=== PATIENT | female | born 1990 | race Caucasian/White ===

== ENCOUNTER 2018-10-29 10:57 | Emergency (ER) | payer OTHER ==
[2018-10-29 11:59] VITALS: TEMP 97.7; BMI 28.3
--- NOTE | 2018-10-29 13:34 | PDOC ---
History of Present Illness - General Chief Complaint: Chest Pain Stated Complaint: CHEST PAIN Time Seen by Provider: 10/29/18 12:49 History Source: Patient Exam Limitations: No Limitations - History of Present Illness Initial Comments: 10/29/18 13:23 8YOF who is 36 wks who p/w intermittent sharp chest pain q20 minutes with radiation to RUE, accompanied by SOB, headache, and BLE swelling and discomfort without one side worse than the other, since for about the past 2 days. She returned back from a trip to [place] yesterday, which was an [address], but she made a point to get out of the car frequently to stretch. She denies f/c/n/v/d/c, abdominal pain, new back pain, palpitations, personal or family h/o blood clots or heart disease/heart attack, or additional DVT/PE risk factors. Past History - Past Medical History Allergies/Adverse Reactions: Allergies Allergy/AdvReac Type Severity Reaction Status Date / Time Penicillins Allergy Unknown "dizziness" Verified 10/29/18 17:02 Home Medications: Ambulatory Orders Pnv No.95/Ferrous Fum/Folic AC [ Vitamin Tablet] 1 each PO DAILY Cephalexin Monohydrate [Keflex -] 500 mg PO BID #14 capsule 10/29/18 Asthma: No Cancer: No Cardiac Disorders: No Diabetes: No HTN: No Seizures: No Thyroid Disease: No - Suicide/Smoking/Psychosocial Hx Smoking History: Never smoked Have you smoked in the past 12 months: No Information on smoking cessation initiated: No Hx Alcohol Use: No Drug/Substance Use Hx: No Substance Use Type: None Hx Substance Use Treatment: No Review of Systems - Review of Systems Able to Perform ROS?: Yes Comments:: 10/29/18 13:39 GEN: no fever, chills, malaise, generalized weakness, or weight change HEENT: no ear pain, sore throat, vision change, or eye pain CV: chest pain, edema, no palpitations, lightheadedness, no syncope RESP: SOB, ALVAREZ, no cough, no wheezing GI: no abdominal pain, nausea, vomiting, diarrhea, constipation, or white/black/ bloody stool : no dysuria, hematuria, incontinence, retention, bleeding, or discharge MSK: no neck/back pain, muscle weakness/pain, or joint swelling/pain NEURO: headache, no seizure, vertigo, numbness, tingling, or focal weakness PSYCH: no substance use, no behavior change SKIN: no jaundice, no rash ROS otherwise negative except as noted in HPI *Physical Exam - Vital Signs Last Vital Signs Temp Pulse Resp BP Pulse Ox 97.7 F 106 H 22 H 121/85 100 10/29/18 11:53 10/29/18 15:48 10/29/18 15:48 10/29/18 15:48 10/29/18 15:48 - Physical Exam Comments: 10/29/18 13:46 GENERAL: nontoxic and well-appearing, A/Ox4, no distress, answers questions appropriately HEENT: PERRLA, EOMI, moist mucous membranes NECK/BACK: no midline ttp, no spinal stepoff or deformity, no hematoma, full ROM , neck supple CARDIOVASCULAR: regular rate/rhythm, normal S1S2, no MGR, strong peripheral pulses, capillary refill <2 seconds, extremities wwp, BLE 2+ pitting edema LUNGS/RESPIRATORY: no respiratory distress, CTAB GI/ABDOMEN: symmetric zcid-co-dtoy, normoactive BS, soft, no ttp, no midline pulsatile masses : no CVA tenderness EXTREMITIES: no muscle atrophy, no acute deformity, no calf pain, +BLE swelling which are equal bilaterally, no palpable cord SKIN: warm and dry, no pallor, no jaundice, no rash, no bruising, no skin breakdown, no cuts, no lesions NEUROLOGICAL: GCS 15, CN II-XII grossly intact, 5/5 strength proximally and distally, no facial droop Heart Score/ECG Review #1 10/29/18 13:47 NSR, rate 92, normal axis and intervals, nonspecific ST-T abnormality ED Treatment Course - LABORATORY CBC & Chemistry Diagram: 10/29/18 14:00 10/29/18 14:00 - ADDITIONAL ORDERS Additional order review: 10/29/18 14:04 Urine Culture - Final Urine - Urine Clean Catch Contaminated: Please Repeat 10/29/18 14:00 RBC 3.90 MCV 85.3 MCHC 32.9 RDW 15.3 MPV 8.8 Neutrophils % 73.2 Lymphocytes % 17.5 Monocytes % 7.4 Eosinophils % 1.5 Basophils % 0.4 - RADIOLOGY Radiology Studies Ordered: Category Date Time Status DUPLEX VASCUL US-2LEGS [US] Stat Ultrasound 10/29/18 13:37 Completed - Medications Given in the ED: ED Medications Discontinued Medications Generic Name Dose Route Start Last Admin Trade Name Yulisa PRN Reason Stop Dose Admin Cephalexin HCl 500 mg 10/29/18 15:38 10/29/18 15:43 Keflex - PO 10/29/18 15:39 500 mg ONCE ONE Administration Medical Decision Making - Medical Decision Making 28YOF who is 36 wks p/w chest pain. Initial Vital Signs Temp Pulse Resp BP Pulse Ox 97.7 F 94 H 18 120/73 96 10/29/18 11:53 10/29/18 11:53 10/29/18 11:53 10/29/18 11:53 10/29/18 11:53 Exam: As noted in Physical Exam section. DDX IBNLT: concern is for PE. Also could be any of the following: musculoskeletal pain, pericarditis, ACS (matti -associated SCAD), gastritis, PUD, pancreatitis, cholecystitis, choledocholithiasis, cholangitis, colitis, UTI/pyelonephritis, PNA/bronchitis, pleurisy, pleuritis, less likely aortic dissection, AAA, PTX, bowel perforation, MVP, panic/anxiety, etc. W/U ordered: Labs as noted below, EKG, BLE duplex TX ordered: None at this time. EKG: Reviewed; results as noted in ECG Review section. Duplex BLE: No e/o DVT Laboratory Tests 10/29/18 10/29/18 10/29/18 14:00 14:00 14:00 WBC 11.8 H RBC 3.90 Hgb 10.9 Hct 33.2 MCV 85.3 MCH 28.1 MCHC 32.9 RDW 15.3 Plt Count 247 MPV 8.8 Absolute Neuts (auto) 8.7 H Neutrophils % 73.2 Lymphocytes % 17.5 Monocytes % 7.4 Eosinophils % 1.5 Basophils % 0.4 Nucleated RBC % 0 PT with INR 11.70 INR 0.99 PTT (Actin FS) 30.4 Sodium 139 Potassium 3.9 Chloride 110 H Carbon Dioxide 23 Anion Gap 7 L BUN 4.2 L Creatinine 0.5 L Est GFR (CKD-EPI)AfAm 154.81 Est GFR (CKD-EPI)NonAf 133.57 Random Glucose 78 Calcium 8.7 Total Bilirubin 0.2 AST 8 L ALT 13 Alkaline Phosphatase 124 H Creatine Kinase 35 Troponin I < 0.02 Total Protein 6.0 L Albumin 2.6 L Urine Color Urine Appearance Urine pH Ur Specific [place] Urine Protein Urine Glucose (UA) Urine Ketones Urine Blood Urine Nitrite Urine Bilirubin Urine Urobilinogen Ur Leukocyte Esterase Urine WBC (Auto) Urine RBC (Auto) Urine Casts (Auto) U Pathogenic Cast Auto U Epithel Cells (Auto) Urine Crystals (Auto) Urine Bacteria (Auto) Urine Yeast (Auto) 10/29/18 14:04 WBC RBC Hgb Hct MCV MCH MCHC RDW Plt Count MPV Absolute Neuts (auto) Neutrophils % Lymphocytes % Monocytes % Eosinophils % Basophils % Nucleated RBC % PT with INR INR PTT (Actin FS) Sodium Potassium Chloride Carbon Dioxide Anion Gap BUN Creatinine Est GFR (CKD-EPI)AfAm Est GFR (CKD-EPI)NonAf Random Glucose Calcium Total Bilirubin AST ALT Alkaline Phosphatase Creatine Kinase Troponin I Total Protein Albumin Urine Color Yellow Urine Appearance Turbid Urine pH 6.5 Ur Specific [place] 1.022 Urine Protein Negative Urine Glucose (UA) Negative Urine Ketones Negative Urine Blood Negative Urine Nitrite Negative Urine Bilirubin Negative Urine Urobilinogen 1.0 Ur Leukocyte Esterase 2+ H Urine WBC (Auto) 56 Urine RBC (Auto) 2 Urine Casts (Auto) 35 U Pathogenic Cast Auto None seen U Epithel Cells (Auto) 26.8 Urine Crystals (Auto) Ca oxalates Urine Bacteria (Auto) 2688.2 Urine Yeast (Auto) None seen Patient has UTI and is treated; first dose Keflex given here and remaining course sent to pharmacy. Reassessment: patient states slight improvement but still having some right shoulder pain. Seen walking around department not SOB and asking for discharge home. Dr. Sheppard and I have multiple conversations with her recommending chest CTA. She is understandably very concerned about radiation and contrast to the baby. We do explain to her the risks of pulmonary embolism and that this is one of our main concerns. We do make it clear that our medical recommendation is to have the chest CTA. She wishes to sign out AMA. The patient has full decision making capacity and after thorough discussion of risks including , she signs out AMA. Paperwork is given with specific return precautions and request that she return if she changes her mind. She is instructed to go back up to L&D for monitoring before going home. L&D is called and expecting her. *DC/Admit/Observation/Transfer Diagnosis at time of Disposition: SOB (shortness of breath) UTI (urinary tract infection) Qualifiers: Urinary tract infection type: acute cystitis Hematuria presence: without hematuria Qualified Code(s): N30.00 - Acute cystitis without hematuria Chest pain Qualifiers: Chest pain type: unspecified Qualified Code(s): R07.9 - Chest pain, unspecified - Discharge Dispostion Disposition: AGAINST MEDICAL ADVICE Condition at time of disposition: Stable Decision to Admit order: No - Prescriptions Prescriptions: Cephalexin Monohydrate [Keflex -] 500 mg PO BID #14 capsule - Referrals Referrals: Nina Mccormick CNM [Primary Care Provider] - - Patient Instructions Printed Discharge Instructions: DI for Urinary Tract Infection (UTI), DI for Chest Pain Additional Instructions: You were seen in the ER for chest pain. We did lab work on your blood and urine , an electrocardiogram, and a leg ultrasound to look for blood clots. We found a bladder infection, but otherwise did not find any concerning abnormalities. We recommended that you get a chest CT to make sure there is no blood clot in your lungs, but we understand that you decided you did not want this and preferred to go home against medical advice out of concern for the radiation exposure to the baby. Take over the counter pain medications for your pain, as instructed on the medication label. Please follow up with your regular doctors this afternoon or tomorrow. Call their clinic as soon as possible, tell them you were seen in the ER for chest pain and concerns for pulmonary embolism, and tell them you need an appointment LOC. If you have any new or worsening symptoms, especially worsening chest pain, jaw pain, shoulder/arm pain, shortness of breath, sweats, nausea, loss of consciousness, palpitations, or other symptoms, please come back to the ER at any time (24 hours a day). If you are having severe or life threatening symptoms, or symptoms that make it unsafe to drive or have someone drive you, please call 911. Please come back to the emergency room if you change your mind about having the CT scan to check for blood clots in your lungs. If there is a blood clot, this can be a very serious issue with high probability for . - Post Discharge Activity
[2018-10-29 14:20] LABS: BASO % 0.4 % (0-2.0); EOS % 1.5 % (0-4.5); HEMATOCRIT 33.2 % (32.4-45.2); HEMOGLOBIN 10.9 GM/dL (10.7-15.3); LYMPH % 17.5 % (8-40); MCH 28.1 pg (25.7-33.7); MCHC 32.9 g/dl (32.0-36.0); MEAN CELL VOLUME 85.3 fl (80-96); MEAN PLT VOLUME 8.8 fl (7.5-11.1); MONO % 7.4 % (3.8-10.2); NEUT % 73.2 % (42.8-82.8); PLATELET COUNT 247 K/MM3 (134-434); RDW 15.3 % (11.6-15.6); WHITE BLOOD COUNT 11.8 K/mm3 (4.0-10.0)
[2018-10-29 14:36] LABS: EPI CELLS 26.8 /HPF (0-5/HPF); HYALINE CASTS 35 /lpf (0-8); PH,URINE 6.5 (5.0-8.0); URINE APPEARANCE TURBID; URINE BACTERIA 2688.2 /hpf (NEGATIVE); URINE BILIRUBIN NEGATIVE (NEGATIVE); URINE COLOR YELLOW; URINE GLUCOSE (UA) NEGATIVE (NEGATIVE); URINE KETONE NEGATIVE (NEGATIVE); URINE LEUK ESTERASE 2+ (NEGATIVE); URINE NITRITE NEGATIVE (NEGATIVE); URINE PROTEIN NEGATIVE (NEGATIVE); URINE RBC 2 /hpf (0-4); URINE WBC 56 /hpf (0-5)
[2018-10-29 14:37] LABS: INR 0.99 (0.83-1.09); PROTHROMBIN TIME (PATIENT) 11.7 SEC (9.7-13.0)
[2018-10-29 14:40] LABS: ACTIVATED PTT 30.4 SECONDS (25.2-36.5)
[2018-10-29 14:50] LABS: ALBUMIN 2.6 g/dl (3.4-5.0); ALK PHOS 124 U/L (45-117); ANION GAP 7 MMOL/L (8-16); BILIRUBIN,TOTAL 0.2 mg/dL (0.2-1); BLOOD UREA NITROGEN 4.2 mg/dL (7-18); CALCIUM 8.7 mg/dL (8.5-10.1); CHLORIDE 110 mmol/L (98-107); CO2 23 mmol/L (21-32); CREATININE 0.5 mg/dL (0.55-1.3); GLUCOSE,RANDOM 78 mg/dL (74-106); POTASSIUM 3.9 mmol/L (3.5-5.1); SGOT/AST 8 U/L (15-37); SGPT/ALT 13 U/L (13-61); SODIUM 139 mmol/L (136-145)
[2018-10-29 14:51] LABS: URINE CRYSTALS CA OXALATES /hpf; YEAST NONE SEEN (NEGATIVE)
[2018-10-29] MEDS ORDERED: CEPHALEXIN MONOHYDRATE 500 MG CAPSULE (UD) PO ONE (15:38)
[2018-10-29] MEDS ORDERED: CEPHALEXIN MONOHYDRATE 500 MG CAPSULE (UD) ONE (15:42)
[2018-10-29 15:49] VITALS: BP 121/85; PULSE 106
--- NOTE | 2018-10-29 16:29 | PDOC ---
Documentation entered by Judy Pitts SCRIBE, acting as scribe for Nohelia Sheppard MD. Nohelia Sheppard MD: This documentation has been prepared by the zenobiaeHong Aiswarya, SCRIBE, under my direction and personally reviewed by me in its entirety. I confirm that the documentation accurately reflects all work, treatment, procedures, and medical decision making performed by me. Attending Attestation - Resident Resident Name: Traci Sheehan - ED Attending Attestation I have performed the following: I have examined & evaluated the patient, The case was reviewed & discussed with the resident, I agree w/resident's findings & plan, Exceptions are as noted - HPI HPI: 10/29/18 15:32 Ms Hickman is a 28 yo F who is approximately 36 wks who p/w intermittent sharp chest pain q20 minutes with radiation to RUE, accompanied by SOB, headache, and BLE swelling and discomfort without one side worse than the other, since for about the past 2 days. She returned back from a trip to [place] yesterday, which was an [address], but she made a point to get out of the car frequently to stretch. - Physicial Exam PE: 10/29/18 15:33 GENERAL: The patient is in no acute distress. ENT: Ears normal, nares patent, oropharynx clear without exudates. Moist mucous membranes. NECK: Normal range of motion, supple LUNGS: Breath sounds equal, clear to auscultation bilaterally. No wheezes, and no crackles. HEART:Regular rate and rhythm, normal S1 and S2 without murmur, rub or gallop. ABDOMEN: Gravid abdomen, Soft, nontender EXTREMITIES: Normal range of motion, no edema. NEUROLOGICAL: Cranial nerves II through XII grossly intact. Normal speech. No focal neurological deficits. SKIN: Warm, Dry, normal turgor, no rashes or lesions noted. - Medical Decision Making 10/29/18 16:20 Ms Hickman presents to the ER with a complaint of chest pain Located on the right side of the chest and radiating to the right shoulder Pt has associated shortness of breath Pt pain began suddenly yesterday Pt drove back from [place] yesterday and today Lower extremity edema is new NO PLEURISY no pain on palpation Pt pain is intermittent No cough No fever Labs 10/29/18 16:24 Laboratory Tests 10/29/18 10/29/18 10/29/18 14:00 14:00 14:00 WBC 11.8 H Hgb 10.9 Hct 33.2 Plt Count 247 INR 0.99 BUN 4.2 L Creatinine 0.5 L Creatine Kinase 35 Troponin I < 0.02 Urine Ketones Urine Blood Urine Nitrite Ur Leukocyte Esterase Urine WBC (Auto) Urine RBC (Auto) U Pathogenic Cast Auto Urine Crystals (Auto) Urine Bacteria (Auto) 10/29/18 14:04 WBC Hgb Hct Plt Count INR BUN Creatinine Creatine Kinase Troponin I Urine Ketones Negative Urine Blood Negative Urine Nitrite Negative Ur Leukocyte Esterase 2+ H Urine WBC (Auto) 56 Urine RBC (Auto) 2 U Pathogenic Cast Auto None seen Urine Crystals (Auto) Ca oxalates Urine Bacteria (Auto) 2688.2 Pt duplex negative for DVT We have had a long conversation re: our thought to do a CTA to r/o PE given pt in 3rd trimester, Just drove back from [place], is tachycardiac Pt is unwilling to consent to this test Pt is aware of our concern about a life threatening clot in her lung which could cause her Pt understands these risks I have explained that although the CT does involve radiation, the baby will be shielded by a lead apron AND pt has largely completed forming its organs and therefore if there is a little radiation, it should be deter her from being assessed Pt insists on going home I have asked this patient to return IMMEDIATELY to the ER for increased chest pain, shortness of breath, palpitations, weakness, any other concerns or complaints Pt told that she can return to the ER at any time and should come via ambulance Pt told to review all discharge instructions with and have him monitor her as well Pt sent to L&D for monitoring Note: The patient insists on leaving the emergency dept and is signing out against medical advice. The patient understands the risks and complications that may result from the refusal of medical care and admission which includes and permanent disability. The patient has the mental capacity of understanding the risks of refusing care and is capable of making an informed decision. The patient was instructed to return to the emergency department should she change her mind regarding medical care or should her condition worsen. The patient signed the Against Medical Advice form.
--- NOTE | 2018-10-29 16:30 | EKG ---
Test Reason : Blood Pressure : / mmHG Vent. Rate : 092 BPM Atrial Rate : 092 BPM P-R Int : 124 ms QRS Dur : 096 ms QT Int : 356 ms P-R-T Axes : 037 031 045 degrees QTc Int : 440 ms NORMAL SINUS RHYTHM NONSPECIFIC ST ABNORMALITY ABNORMAL ECG NO PREVIOUS ECGS AVAILABLE Confirmed by DEDE STATON MD ([id number]) on 10/29/2018 4:30:23 PM Referred By: Confirmed By:DEDE STATON MD
== END 2018-10-29 17:00 | disposition left against medical advice (07) ==
LOC: JERFT 10:57 → JER 10:57
DX: O26.893 Other specified pregnancy related conditions, third trimester (principal); O23.13 Infections of bladder in pregnancy, third trimester; N30.00 Acute cystitis without hematuria; Z3A.36 36 weeks gestation of pregnancy; R07.9 Chest pain, unspecified; R06.02 Shortness of breath
CPT/HCPCS: 36415; 80053; 81003; 82550; 84484; 85025; 85610; 85730; 87086; 93005; 93010; 93970-TC; 99283-25

== ENCOUNTER 2018-12-04 13:15 | Inpatient (IN) | payer OTHER ==
[2018-12-04 14:13] LABS: BASO % 0.3 % (0-2.0); HEMOGLOBIN 10.9 GM/dL (10.7-15.3); LYMPH % 18.6 % (8-40); MCH 27.5 pg (25.7-33.7); MEAN PLT VOLUME 8.8 fl (7.5-11.1); MONO % 7.2 % (3.8-10.2); NEUT % 72.9 % (42.8-82.8); PLATELET COUNT 235 K/MM3 (134-434); RBC 3.95 M/mm3 (3.60-5.2); RDW 15.8 % (11.6-15.6)
[2018-12-04 14:20] VITALS: BMI 40.4
[2018-12-04 14:22] LABS: INR 1.04 (0.83-1.09); PROTHROMBIN TIME (PATIENT) 12.3 SEC (9.7-13.0)
[2018-12-04 14:25] LABS: ACTIVATED PTT 27.5 SECONDS (25.2-36.5)
[2018-12-04 14:32] LABS: BLOOD UREA NITROGEN 6.7 mg/dL (7-18); CALCIUM 9.3 mg/dL (8.5-10.1); CREATININE 0.6 mg/dL (0.55-1.3); POTASSIUM 3.5 mmol/L (3.5-5.1)
--- NOTE | 2018-12-04 15:06 | PN ---
Progress Note (short form) - Note Progress Note: cx clp, vx -4 mi, fhr cat 1, no contraction, risks associated with cervidil discussed , failure of induction discussed , and maternal complication discussed , requesting induction, cervidil inserted
--- NOTE | 2018-12-04 15:12 | HP ---
Past Medical History - Primary Care Physician PCP:: Gene De Jesus - Admission Chief Complaint: 40.4 weeks, post date , for cervidil induction History of Present Illness: 28 yo f g 4 p2012 edc by sono 12/01/18 , 40.3 weeks, hx of previous LGA , requesting induction, cx clp, vx -4 , fhr cat 1, , no contraction History Source: Patient Limitations to Obtaining History: No Limitations - Past Medical History ...: 4 ...Para: 2 ...Term: 2 ...: 0 ...Spon : 1 ...Induced : 0 ...Multiple Gestation: 0 ...EDC by Sono: 12/01/18 Heme/Onc: Yes: Anemia - Past Surgical History Past Surgical History: Yes: None Hx Myomectomy: No Hx Transabdominal Cerclage: No - Smoking History Smoking history: Never smoked Have you smoked in the past 12 months: No - Alcohol/Substance Use Hx Alcohol Use: No - Social History Usual Living Arrangement: Yes: With Spouse Home Medications - Allergies Allergies/Adverse Reactions: Allergies Allergy/AdvReac Type Severity Reaction Status Date / Time Penicillins Allergy Unknown "dizziness" Verified 12/04/18 14:21 - Home Medications Home Medications: Ambulatory Orders Vit No.130/Iron/Folic [ Tablet] 1 tab PO DAILY 12/01/18 Ferrous Sulfate [Feosol] 325 mg PO DAILY 12/04/18 Review of Systems - Review of Systems Constitutional: reports: No Symptoms Eyes: reports: No Symptoms HENT: reports: No Symptoms Neck: reports: No Symptoms Cardiovascular: reports: No Symptoms Respiratory: reports: No Symptoms Gastrointestinal: reports: No Symptoms Genitourinary: reports: No Symptoms Breasts: reports: No Symptoms Reported Musculoskeletal: reports: No Symptoms Integumentary: reports: No Symptoms Neurological: reports: No Symptoms Endocrine: reports: No Symptoms Hematology/Lymphatic: reports: No Symptoms Psychiatric: reports: No Symptoms Physical Exam - Maternity Vital Signs: Vital Signs Temperature 98.1 F 12/04/18 14:00 Pulse Rate 97 H 12/04/18 15:00 Respiratory Rate 18 12/04/18 15:00 Blood Pressure 124/72 12/04/18 15:00 O2 Sat by Pulse Oximetry (%) Constitutional: Yes: Well Nourished, No Distress, Calm Eyes: Yes: WNL, Conjunctiva Clear, EOM Intact HENT: Yes: WNL, Atraumatic, Normocephalic Neck: Yes: WNL, Supple, Trachea Midline Cardiovascular: Yes: WNL, Regular Rate and Rhythm Breast(s): Yes: WNL - Abdominal Exam/OB Fundal Height: 40 Number of Fetuses: Single Presentation: Vertex Contractions: No Intensity: Unaware Monitor Mode: External Heart Rate Location: [facility] Category: I Accelerations: Uniform Decelerations: None - Vaginal Exam/OB Vaginal Bleediing: No Speculum Exam: No Dilatation (cm): closed Effacement (%): 0 Amniotic Membrane Status: Intact Presentation: Vertex/Position Station: -4 - Physical Exam Musculoskeletal: Yes: WNL Extremities: Yes: WNL Edema: Yes Edema: LLE: Trace, RLE: Trace Deep Tendon Reflex Grade: Normal +2 Psychiatric: Yes: WNL - Labs Lab Results: CBC, BMP 12/04/18 13:59 12/04/18 13:59 Hemorrhage Risk Assessment - Risk Factors Medium Risk Factors: Yes: None High Risk Factors: Yes: None Risk Score: 1 Risk Level: Medium Risk Problem List - Problems (1) Post-dates Code(s): O48.0 - POST-TERM Qualifiers: Post-term type: 40-42 weeks gestation Qualified Code(s): O48.0 - Post-term (2) Encounter for induction of labor Code(s): Z34.90 - ENCNTR FOR SUPRVSN OF NORMAL , UNSP, UNSP TRIMESTER Assessment/Plan admit, FHM GBS negative cervidil inductiob
[2018-12-04] MEDS ORDERED: ACETAMINOPHEN 325 MG TABLET (FP) ONE (15:15)
[2018-12-04] MEDS ORDERED: PROMETHAZINE HCL 25 MG/1 ML VIAL IVPUSH ONE (15:17)
[2018-12-04] MEDS ORDERED: BUTORPHANOL TARTRATE 1 MG/ML VIAL IVPUSH ONE (15:17)
[2018-12-04] MEDS ORDERED: ACETAMINOPHEN 325 MG TABLET (FP) PO ONE (16:00)
[2018-12-04] MEDS ORDERED: DINOPROSTONE 10 MG VAGINAL SUPPOSITORY VG ONE (16:00)
[2018-12-04] MEDS: OXYTOCIN 30 UNITS in 0.9% NS 30 UNIT/500 ML INFUS.BAG IVPB SCH (22:45)
[2018-12-05] MEDS ORDERED: OXYTOCIN 30 UNITS in 0.9% NS 30 UNIT/500 ML INFUS.BAG IVPB SCH (03:15)
[2018-12-05] MEDS ORDERED: OXYTOCIN 30 UNITS in 0.9% NS 30 UNIT/500 ML INFUS.BAG IVPB ONE ×2 (03:51→22:40)
[2018-12-05] MEDS: DEXTROSE 5%-LACTATED RINGERS 1,000 ML IV SCH ×2 (04:30→15:00)
[2018-12-05] MEDS ORDERED: DINOPROSTONE 10 MG VAGINAL SUPPOSITORY VG ONE (07:30)
--- NOTE | 2018-12-05 07:50 | PN ---
Progress Note (short form) - Note Progress Note: post date,for induction of labor cervidil was removed, started on pitocin, does not feel contraction , comfortable cx clp, -4 station , no changes of cervix, wants to cont, induction fhr CAT 1 advised stop pitocin , will insert second cervidil to make cx soft , before restarting pitocin Problem List - Problems (1) Post-dates Code(s): O48.0 - POST-TERM Qualifiers: Post-term type: 40-42 weeks gestation Qualified Code(s): O48.0 - Post-term (2) Encounter for induction of labor Code(s): Z34.90 - ENCNTR FOR SUPRVSN OF NORMAL , UNSP, UNSP TRIMESTER
[2018-12-06] MEDS: DEXTROSE 5%-LACTATED RINGERS 1,000 ML IV SCH (04:00)
[2018-12-06] MEDS ORDERED: ACETAMINOPHEN 325 MG TABLET (FP) ONE ×2 (12:26→18:06)
[2018-12-06] MEDS ORDERED: ACETAMINOPHEN 325 MG TABLET (FP) PO ONE ×2 (12:30→18:30)
[2018-12-06] MEDS ORDERED: OXYTOCIN 30 UNITS in 0.9% NS 30 UNIT/500 ML INFUS.BAG IVPB ONE (15:31)
[2018-12-06] MEDS ORDERED: ONDANSETRON 4 MG/2 ML VIAL IVPUSH PRN (21:19)
[2018-12-06] MEDS ORDERED: KETOROLAC TROMETHAMINE 30 MG/1 ML VIAL ONE (21:30)
[2018-12-06] MEDS: OXYTOCIN 30 UNITS in 0.9% NS 30 UNIT/500 ML INFUS.BAG IVPB SCH (21:45)
--- NOTE | 2018-12-06 21:59 | PN ---
Progress Note (short form) - Note Progress Note: cx closed, non effaced , presenting part not felt, bed side sono confirmed unstable lie , transverse lie , fhr cat 1, advised c/s , risks discussed Problem List - Problems (1) Post-dates Code(s): O48.0 - POST-TERM Qualifiers: Post-term type: 40-42 weeks gestation Qualified Code(s): O48.0 - Post-term (2) Encounter for induction of labor Code(s): Z34.90 - ENCNTR FOR SUPRVSN OF NORMAL , UNSP, UNSP TRIMESTER
[2018-12-06] MEDS ORDERED: OXYTOCIN 10 UNITS/ML VIAL ONE (22:11)
[2018-12-06] MEDS ORDERED: ePHEDrine SULFATE 50 MG/1 ML AMPULE ONE (22:13)
[2018-12-06] MEDS ORDERED: ceFAZolin SODIUM 1 GM VIAL ONE (22:15)
[2018-12-06] MEDS ORDERED: MIDAZOLAM HCL 2 MG/2 ML SINGLE DOSE VIAL ONE (22:21)
[2018-12-06] MEDS ORDERED: BENZOCAINE 28 GM HEMORRHOIDAL OINTMENT PR PRN (23:10)
[2018-12-06] MEDS ORDERED: WITCH HAZEL 50% (TUCKS) 40 PAD/JAR PAD TP PRN (23:10)
[2018-12-06] MEDS ORDERED: BENZOCAINE 20% 57 GM BOTTLE TP PRN (23:10)
[2018-12-06] MEDS ORDERED: METHYLERGONOVINE MALEATE 0.2 MG/1 ML AMP IM PRN (23:10)
[2018-12-06] MEDS ORDERED: OXYTOCIN 20 UNITS in 0.9% NS 20 UNIT/1,000 ML INFUS.BAG IV SCH (23:15)
[2018-12-06] MEDS ORDERED: DEXTROSE 5%-LACTATED RINGERS 1,000 ML IV SCH (23:15)
--- NOTE | 2018-12-06 23:16 | OP ---
Operative Note - Note: Operative Date: 12/06/18 Pre-Operative Diagnosis: ,post date , cervidil and pitocin induction, unstable lie , Operation: primary LST c/s Findings: live baby boy wt 813, 19 inches , transverse lie Anesthesia: Spinal Specimens Removed: placenta Estimated Blood Loss (mls): 500 Blood Volume Replaced (mls): 0 Operative Report Dictated: Yes
[2018-12-06] MEDS ORDERED: CITRIC ACID/SODIUM CITRATE 30 ML UNIT-DOSE CUP PO ONE (23:17)
--- NOTE | 2018-12-07 01:27 | OP ---
DATE OF OPERATION: 12/06/2018 PREOPERATIVE DIAGNOSIS: , post dates; Cervidil and Pitocin induction; failure to dilate; unstable lie. POSTOPERATIVE DIAGNOSIS: , post dates; Cervidil and Pitocin induction; failure to dilate; unstable lie. PROCEDURE: Primary low segment transverse section. SURGEON: Paul De Jesus MD POULTRY PROCESS WORKER: ROSEANNE Alston ANESTHESIA: Spinal. ANESTHESIOLOGIS: BIJU Castillo ESTIMATED BLOOD LOSS: 500 mL. DESCRIPTION OF PROCEDURE: Patient was taken to the operating room where under adequate spinal anesthesia abdomen and perineum were prepped and draped. Pfannenstiel abdominal skin incision was made. Abdominal wall was cut [id number] until the peritoneum was exposed and incised. Upon entry into the abdominal cavity, lower uterine segment was identified and uterovesical fold of peritoneum was established. Bladder was pushed down. Then with the bladder retracted in the pelvis, a low transverse uterine incision was made and incision was extended laterally and amniotic sac was entered. Large amount of clear amniotic fluid was noted. Baby was in transverse position, which was delivered as a breech without any difficulty. Placenta was delivered manually. Uterine cavity was cleaned of all remaining tissue. Uterine incision was closed in 2 layers; first layer with 0 Biosyn continuous suture and the second layer with 0 Biosyn imbricating the first layer. Bladder flap was closed with 0 Biosyn continuous suture. Both tubes and ovaries were checked and were normal. No active bleeding was seen. All of the lap pad, sponge, and instrument counts were correct. Peritoneal cavity was several times irrigated and then peritoneum was closed with 0 Biosyn continuous suture. Muscles were brought together with interrupted sutures of 0 Biosyn. Fascia was closed with 0 Biosyn continuous suture, subcutaneous fat with interrupted suture of 0 Biosyn, and the skin was closed with afshan. Patient tolerated the procedure well and left the OR in good condition. PAUL DE JESUS M.D. /[id number]
[2018-12-07] MEDS: IBUPROFEN 800 MG/8 ML IJ IVPB PRN ×3 (04:16→21:49)
[2018-12-07] MEDS: CEFAZOLIN 1 GM/D5W 1 GM/50 ML BAG IVPB SCH ×2 (05:55→14:35)
[2018-12-07 06:58] LABS: BASO % 0.3 % (0-2.0); EOS % 0.7 % (0-4.5); HEMATOCRIT 31.3 % (32.4-45.2); HEMOGLOBIN 10.3 GM/dL (10.7-15.3); LYMPH % 16.3 % (8-40); MCH 26.8 pg (25.7-33.7); MCHC 33.1 g/dl (32.0-36.0); MEAN CELL VOLUME 80.9 fl (80-96); MEAN PLT VOLUME 8.9 fl (7.5-11.1); MONO % 7.7 % (3.8-10.2); PLATELET COUNT 206 K/MM3 (134-434); RBC 3.87 M/mm3 (3.60-5.2); RDW 15.9 % (11.6-15.6); WHITE BLOOD COUNT 12.2 K/mm3 (4.0-10.0)
[2018-12-07] MEDS: ENOXAPARIN NA (PORCINE) 40 MG/0.4 ML DISP.SYRIN SQ SCH (09:42)
[2018-12-07] MEDS: oxyCODONE HCL 5 MG TABLET PO PRN ×2 (14:34→19:55)
--- NOTE | 2018-12-07 15:55 | PN ---
Progress Note (short form) - Note Progress Note: Anesthesiology Post-op 28 y.o. woman POD#1 s/p C/S under spinal anesthesia. Pt. doing well, has no complaints. VSS. No h/a or residual block. VSS. 28 y.o. s/p C/S with stable post-operative course. Continue management as per primary team.
[2018-12-07] MEDS: SIMETHICONE 80 MG TAB.CHEW (FP) PO PRN (19:56)
--- NOTE | 2018-12-07 21:30 | PN ---
Progress Note (short form) - Note Progress Note: pod 1 s/p c/s . doing well, no excess vaginal bleeding CBC, BMP 12/07/18 05:20 12/04/18 13:59 Last Vital Signs Temp Pulse Resp BP Pulse Ox 97.5 F L 76 18 127/66 99 12/07/18 18:00 12/07/18 18:00 12/07/18 18:00 12/07/18 18:00 12/07/18 00:10 abdomen soft, no distension, no cva incision dry, clean no calf tenderness plan ambulate , cbc advance diet Problem List - Problems (1) Post-dates Code(s): O48.0 - POST-TERM Qualifiers: Post-term type: 40-42 weeks gestation Qualified Code(s): O48.0 - Post-term (2) Encounter for induction of labor Code(s): Z34.90 - ENCNTR FOR SUPRVSN OF NORMAL , UNSP, UNSP TRIMESTER
[2018-12-07] MEDS ORDERED: BISACODYL 10 MG SUPP.RECT PR PRN (23:10)
[2018-12-08] MEDS ORDERED: ZOLPIDEM TARTRATE 5 MG TABLET PO ONE (00:15)
[2018-12-08] MEDS: IBUPROFEN 600 MG TABLET (FP) PO PRN ×4 (05:22→20:25)
[2018-12-08] MEDS: oxyCODONE HCL 5 MG TABLET PO PRN ×4 (05:23→20:25)
[2018-12-08] MEDS: SIMETHICONE 80 MG TAB.CHEW (FP) PO PRN ×4 (05:23→20:24)
[2018-12-08] MEDS: ENOXAPARIN NA (PORCINE) 40 MG/0.4 ML DISP.SYRIN SQ SCH (09:37)
--- NOTE | 2018-12-08 11:32 | DS ---
Physical Examination Vital Signs: Vital Signs Temperature 97.9 F 12/08/18 09:00 Pulse Rate 89 12/08/18 09:00 Respiratory Rate 18 12/08/18 09:00 Blood Pressure 118/82 12/08/18 09:00 O2 Sat by Pulse Oximetry (%) 99 12/07/18 00:10 Findings/Remarks: Patient is ambulating, tolerating PO, lochia decreased, voiding, infant transferred out. Patient requesting early discharge. Constitutional: Yes: Well Nourished Eyes: Yes: WNL HENT: Yes: Atraumatic, Normocephalic Neck: Yes: Supple Cardiovascular: Yes: Regular Rate and Rhythm Respiratory: Yes: Regular Gastrointestinal: Yes: Normal Bowel Sounds, Soft ...Rectal Exam: Yes: Deferred Renal/: Yes: Vaginal Bleeding (lochia) Breast(s): Yes: Other (deferred) Musculoskeletal: Yes: WNL Extremities: Yes: WNL Edema: LLE: 1+, RLE: 1+ Integumentary: Yes: WNL Wound/Incision: Yes: Clean/Dry, Well Approximated, [place] Intact Neurological: Yes: Alert, Oriented Psychiatric: Yes: Alert, Oriented Labs: CBC, BMP 12/07/18 05:20 12/04/18 13:59 Discharge Summary Reason For Visit: INDUCTION OF LABOR Current Active Problems Encounter for induction of labor (Acute) Post-dates (Acute) Procedures: Principal: PLTCS Hospital Course: Patient underwent induction of labor, concluding in PLTCS. Patient evaluated on POD # 2 and adequate recovery progression. She desires early discharge to join her baby, who was transferred out. Patient agreed to wait until at least 48 hrs post-op prior to discharge Condition: Stable - Instructions Diet, Activity, Other Instructions: regular diet, call MD with any problems, take medications as required, follow up at health center within a week Referrals: Bay Foreman MD [Staff Physician] - Disposition: HOME - Home Medications Comprehensive Discharge Medication List: Ambulatory Orders Vit No.130/Iron/Folic [ Tablet] 1 tab PO DAILY 12/01/18 Ferrous Sulfate [Feosol] 325 mg PO DAILY 12/04/18
[2018-12-08] MEDS: SENNOSIDES/DOCUSATE COMBO (SENNA PLUS) TABLET (UD) PO PRN (20:24)
[2018-12-08] MEDS: diphenhydrAMINE HCL 25 MG CAPSULE (FP) PO PRN (20:59)
[2018-12-09] MEDS: IBUPROFEN 600 MG TABLET (FP) PO PRN ×4 (05:27→21:37)
[2018-12-09] MEDS: SIMETHICONE 80 MG TAB.CHEW (FP) PO PRN ×2 (05:27→21:39)
[2018-12-09] MEDS: oxyCODONE HCL 5 MG TABLET PO PRN ×3 (05:28→21:38)
[2018-12-09 08:26] LABS: BASO % 0.5 % (0-2.0); EOS % 3.1 % (0-4.5); HEMATOCRIT 30.3 % (32.4-45.2); LYMPH % 16.8 % (8-40); MCH 26.9 pg (25.7-33.7); MCHC 33.2 g/dl (32.0-36.0); MEAN CELL VOLUME 81.2 fl (80-96); MEAN PLT VOLUME 8.8 fl (7.5-11.1); MONO % 7.3 % (3.8-10.2); NEUT % 72.3 % (42.8-82.8); PLATELET COUNT 229 K/MM3 (134-434); RBC 3.73 M/mm3 (3.60-5.2); RDW 15.9 % (11.6-15.6); WHITE BLOOD COUNT 10.8 K/mm3 (4.0-10.0)
[2018-12-09] MEDS: ENOXAPARIN NA (PORCINE) 40 MG/0.4 ML DISP.SYRIN SQ SCH (10:44)
[2018-12-09] MEDS: SENNOSIDES/DOCUSATE COMBO (SENNA PLUS) TABLET (UD) PO PRN (21:39)
[2018-12-09] MEDS: diphenhydrAMINE HCL 25 MG CAPSULE (FP) PO PRN (21:39)
[2018-12-10] MEDS: ENOXAPARIN NA (PORCINE) 40 MG/0.4 ML DISP.SYRIN SQ SCH (10:02)
[2018-12-10] MEDS: IBUPROFEN 600 MG TABLET (FP) PO PRN (10:02)
[2018-12-10 10:26] VITALS: BP 116/82; PULSE 85; TEMP 98.4
--- NOTE | 2018-12-10 10:29 | PN ---
Post Progress Note - Subjective Subjective: c/o pain scale 6/10 bm done voiding without difficulty Post Day: 4 Type of Delivery: Primary C/S Vital Signs: Vital Signs Temperature 98.2 F 12/09/18 22:00 Pulse Rate 81 12/09/18 22:00 Respiratory Rate 20 12/09/18 22:00 Blood Pressure 107/60 12/09/18 22:00 O2 Sat by Pulse Oximetry (%) 99 12/07/18 00:10 Breast Exam: Yes: Soft, Other (pt using breast pump ). No: Engorged Uterus: Yes: Fundus Firm, Fundus below umbilicus, Non-tender Incision: No: Afshan intact (afshan removed , wound healing satisfactory , wound edges well approximated . steri strips applied), Redness, Oozing Abdomen/GI: Yes: Abdomen soft (obese abdomen ), Passing flatus, Tolerating PO ( reg diet ). No: Abdominal Distention Lochia: Yes: Rubra Lochia, amount: Moderate Extremities: Yes: Calves non-tender Perineum: Yes: Intact Activity: Ambulating - Labs Labs: CBC WBC 10.8 K/mm3 (4.0-10.0) H 12/09/18 07:39 RBC 3.73 M/mm3 (3.60-5.2) 12/09/18 07:39 Hgb 10.0 GM/dL (10.7-15.3) L 12/09/18 07:39 Hct 30.3 % (32.4-45.2) L 12/09/18 07:39 MCV 81.2 fl (80-96) 12/09/18 07:39 MCH 26.9 pg (25.7-33.7) 12/09/18 07:39 MCHC 33.2 g/dl (32.0-36.0) 12/09/18 07:39 RDW 15.9 % (11.6-15.6) H 12/09/18 07:39 Plt Count 229 K/MM3 (134-434) 12/09/18 07:39 MPV 8.8 fl (7.5-11.1) 12/09/18 07:39 Absolute Neuts (auto) 7.8 K/mm3 (1.5-8.0) 12/09/18 07:39 Neutrophils % 72.3 % (42.8-82.8) 12/09/18 07:39 Lymphocytes % 16.8 % (8-40) 12/09/18 07:39 Monocytes % 7.3 % (3.8-10.2) 12/09/18 07:39 Eosinophils % 3.1 % (0-4.5) D 12/09/18 07:39 Basophils % 0.5 % (0-2.0) 12/09/18 07:39 Nucleated RBC % 0 % (0-0) 12/09/18 07:39 Problem List - Problems (1) Status post section routine follow-up Code(s): Z39.2 - ENCOUNTER FOR ROUTINE FOLLOW-UP; Z98.891 - HISTORY OF UTERINE SCAR FROM PREVIOUS SURGERY Assessment/Plan stable baby in C, doiing better counselled to continue pnv & iron discharge today rtc 1 wk for f/u
== END 2018-12-10 13:33 | disposition home or self-care (01) | DRG 540 ==
LOC: JLDR 13:15 → J3W 12-07 01:30
PROVIDERS: ADMIT Obstetrics & Gynecology; ATTEND Obstetrics & Gynecology
PROC: 10D00Z1 Extraction of Products of Conception, Low, Open Approach (ICD-10-PCS; principal; 2018-12-04)
PROC: 3E033VJ Introduction of Other Hormone into Peripheral Vein, Percutaneous Approach (ICD-10-PCS; 2018-12-04)
PROC: 3E0P7VZ Introduction of Hormone into Female Reproductive, Via Natural or Artificial Opening (ICD-10-PCS; 2018-12-04)
DX: O48.0 Post-term pregnancy (principal); O32.0XX0 Maternal care for unstable lie, not applicable or unspecified; Z3A.40 40 weeks gestation of pregnancy; Z37.0 Single live birth
CPT/HCPCS: 36415; 36600; 71046-TC-FY; 80048; 82803; 85025; 85610; 85730; 86593; 86850; 86900; 86901; 88307-TC; 93970-TC